=== PATIENT | female | born 1995 | race Two or more races ===

== ENCOUNTER → 2016-12-05 | Outpatient (CLI) | payer OTHER ==
--- NOTE | ~2016-12-05 | US98 ---
[facility] A Service of [facility] & [facility] RADIOLOGY TEXT RESULTS PATIENT: BROOK MURPHY LOCATION: [facility] : [birth year] UNIT #: [id number] AGE: [address]: AIDAN HUNTLEY APRN SEX: F ORDER DR: [id number] [facility] [address] [place], [place] [address] [id number] O MR#: [id number] Acc #: [id number] NAME: BROOK MURPHY : 1995 SEX: F STUDY DATE/TIME: 12/05/2016 10:53 UNIT: [facility] ROOM: STUDY DESCRIPTION: US Pelvic Non-OB Complete Attending Physician: Vin Huntley M.D. Ordering Physician: Vin Huntley M.D. Primary Care Physician: Joseph Caruso M.D. MEDICAL IMAGING REPORT This report is preliminary unless electronic signature is present EXAM Pelvic ultrasound. INDICATIONS Pain for a year. Last normal menstrual period is November 29, 2016. TECHNIQUE Cowart-scale, color Doppler and spectral Doppler waveform analysis was performed through the pelvis both transabdominally and transvaginally. FINDINGS Uterus is homogeneous in echotexture. Endometrium measures up to about 7 mm in thickness which is within normal limits. Normal appearing follicles are seen on the left ovary and there is normal color-Doppler flow. Right ovary also contains normal follicles and shows normal color-Doppler flow. No free fluid is seen. IMPRESSION Normal pelvic ultrasound. Dictated by... Katie Hairston M.D. THIS IS AN ELECTRONICALLY VERIFIED REPORT Katie Hairston M.D. at 12/05/2016 5:08 PM AFF/kitty TD: 12/05/2016 16:34 JOB #: [id number] MEDICAL IMAGING REPORT Page 1 of 1 COPY
== END | disposition home or self-care (01) ==
LOC: CWCC 10:02
DX: R10.2 Pelvic and perineal pain (principal)
CPT/HCPCS: 76830; 76856